=== PATIENT | female | born 1980 | race Caucasian/White ===

== ENCOUNTER 2019-12-24 | Emergency (ER) | payer SELFPAY | END 2019-12-24 05:20 | disposition home or self-care (01) ==

== ENCOUNTER → 2020-06-14 | Outpatient (CLI) | payer OTHER | LOC: LAB.NP 11:27 | PROVIDERS: ATTEND Emergency Medicine | DX: O13.9 Gestational [pregnancy-induced] hypertension without significant proteinuria, unspecified trimester (principal); Z3A.00 Weeks of gestation of pregnancy not specified ==

== ENCOUNTER 2020-08-29 12:05 | Emergency (ER) | payer OTHER ==
[2020-08-29] MEDS ORDERED: SODIUM CHLORIDE 0.9% (FLUSH) 10 ML SYG IV PRN (12:08)
--- NOTE | 2020-08-29 12:08 | ED.PDOC ---
History of Present Illness - General Time Seen by Provider: 08/29/20 12:06 Source: patient - History of Present Illness Initial Comments: Seen upon ED arrival at 12:10. 39 yo female who presents with cc of abdominal pain. Reports onset last night and worsening this morning, especially worsened in the past 1 hour, located to the left lower quadrant of the abdomen with radiation to the left lower flank region, describes as constant sharp, worsens with any attempted oral intake, she tried ibuprofen 400 mg 2 hours ago at home with little relief. Reports she had a bowel movement this morning which was hardened. Prior to that her last bowel movement was 3 days ago. Also reports normal urination this morning without dysuria/hematuria. Patient reports she had vaginal delivery [address] Raphael Middleton in [place]. The course was complicated by a blood clot and she states she had to be rushed to have surgery on her cervix. Reports no issues with this since then to her knowledge. Reports also nausea without emesis. Denies fevers, chills, chest pain, dyspnea, diarrhea, vaginal discharge. She reports scant vaginal bleeding which is slowing and nearly resolved. Denies any history of similar symptoms in the past. Denies any other prior abdominal surgeries. No reported history of kidney stones. She reports having issues with high blood pressure in and takes Procardia and Labetalol as needed if her BP is high. She did not take any BP medications this morning. Allergies/Adverse Reactions: Allergies Penicillins Allergy (Verified 08/29/20 12:21) Home Medications: Ambulatory Orders Acetaminophen W/ Codeine [Tylenol W/ CODEINE #3] 1 tab PO Q6H PRN 7 Days #10 tab 08/29/20 Ciprofloxacin HCl [Ciprofloxacin Hydrochlori] 500 mg PO BID 7 Days #14 tab 08/29/20 Labetalol HCl 08/29/20 Ondansetron Odt [Zofran ODT] 8 mg PO Q8H PRN 5 Days #10 tab 08/29/20 Procardia 08/29/20 Tamsulosin [Flomax] 0.4 mg PO QD 7 Days #7 cap 08/29/20 Review of Systems - Review of Systems Review of Systems: 08/29/20 12:21 as per HPI All other Systems: Reviewed and Negative Family Medical History - Family History Mother Family History: Unknown Living Status: Unknown Physical Exam - Physical Exam General Appearance: Alert, Anxious, No apparent distress Eye Exam: bilateral normal Ears, Nose, Throat: hearing grossly normal, normal ENT inspection, normal pharynx Neck: full range of motion, normal inspection Respiratory: chest non-tender, lungs clear, normal breath sounds, no respiratory distress, no accessory muscle use Cardiovascular/Chest: normal peripheral pulses, regular rate, rhythm, no edema, no gallop, no JVD, no murmur Peripheral Pulses: radial,right: 2+, radial,left: 2+ Gastrointestinal/Abdominal: soft, no organomegaly, abnormal bowel sounds - diminished, tenderness - moderate to LLQ & Left upper/lower flank regions w/o guarding or rebound Back Exam: normal inspection Extremity: normal range of motion, non-tender, normal inspection, no pedal edema, no calf tenderness, normal capillary refill Neurologic: 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 Consider CT imaging vs pelvic sono once labs back -place PIV, 1 L NS bolus, Toradol 30 mg IV, Zofran 4 mg IV 08/29/20 14:48 -Labs reveal UA with moderate blood, trace leuk esterase. Bloodwork largely unremarkable, hcg negative. BUN 13, Cr 0.7. -Patient had worsening of pain again so CT abdomen/pelvis obtained which revealed 5 mm kidney stone in the left proximal ureter with mild to moderate hydroureteronephrosis. She reports pain is markedly improved in the ED with morphine 4 mg IV x2. Discussed findings with patient including diagnosis of left ureteral stone. Given the size, I suspect she has a good chance of s pontaneous passage of the stone with medical treatment. We will discharge home with prescriptions of Cipro 500 twice daily for 7 days, Tylenol 3 as needed, Zofran as needed, Flomax. Follow-up closely with PCP advised. Return warnings discussed at length. Marcin Daivs MD Billing #[id number] 08/29/20 12:08 Sodium Chloride 0.9% (Flush) [Saline Flush Syringe] 10 ml IV PRN PRN 08/29/20 14:45 Strain Urine ONCE Laboratory Results - last 24 hr 08/29/20 08/29/20 08/29/20 12:20 12:20 12:20 WBC 6.6 RBC 4.26 Hgb 11.8 L Hct 35.9 L MCV 84.2 MCH 27.6 MCHC 32.8 L RDW 15.9 H Plt Count 577 H MPV 6.9 L Absolute Neuts (auto) 3.90 Absolute Lymphs (auto) 1.80 Absolute Monos (auto) 0.50 Absolute Eos (auto) 0.30 Absolute Basos (auto) 0.10 Neutrophils % 59.4 Lymphocytes % 27.9 Monocytes % 7.3 Eosinophils % 4.5 Basophils % 0.9 Sodium 138 Potassium 3.8 Chloride 99 L Carbon Dioxide 27 Anion Gap 15.8 BUN 13 Creatinine 0.72 BUN/Creatinine Ratio 18.1 Random Glucose 102 Serum Osmolality 276.0 Calcium 9.2 Total Bilirubin 0.8 Direct Bilirubin 0.1 Indirect Bilirubin 0.7 AST 38 ALT 46 Alkaline Phosphatase 114 Serum Total Protein 7.7 Albumin 4.2 Lipase 25 Serum HCG, Qual Negative Urine Color Urine Appearance Urine pH Ur Specific [place] Urine Protein Urine Glucose (UA) Urine Ketones Urine Blood Urine Nitrite Urine Bilirubin Urine Urobilinogen Ur Leukocyte Esterase Urine RBC Urine WBC Ur Epithelial Cells Urine Bacteria 08/29/20 13:24 WBC RBC Hgb Hct MCV MCH MCHC RDW Plt Count MPV Absolute Neuts (auto) Absolute Lymphs (auto) Absolute Monos (auto) Absolute Eos (auto) Absolute Basos (auto) Neutrophils % Lymphocytes % Monocytes % Eosinophils % Basophils % Sodium Potassium Chloride Carbon Dioxide Anion Gap BUN Creatinine BUN/Creatinine Ratio Random Glucose Serum Osmolality Calcium Total Bilirubin Direct Bilirubin Indirect Bilirubin AST ALT Alkaline Phosphatase Serum Total Protein Albumin Lipase Serum HCG, Qual Urine Color Yellow Urine Appearance Sl cloudy Urine pH 7.0 Ur Specific [place] 1.025 Urine Protein 100 H Urine Glucose (UA) Negative Urine Ketones Trace Urine Blood Moderate H Urine Nitrite Negative Urine Bilirubin Negative Urine Urobilinogen 0.2 Ur Leukocyte Esterase Trace H Urine RBC 5-10 H Urine WBC 0-1 Ur Epithelial Cells 10-20 Urine Bacteria 0 Departure - Departure Clinical Impression: Ureterolithiasis Time of Disposition: 14:38 Disposition: Discharge to Home or Self Care Condition: Fair Instructions: Kidney Stones (DC) Diet: resume usual diet Activity: increase activity as tolerated Referrals: RAPHAEL MIDDLETON [Primary Care Provider] - 1-2 Weeks Prescriptions: Ciprofloxacin HCl [Ciprofloxacin Hydrochlori] 500 mg PO BID 7 Days #14 tab Tamsulosin [Flomax] 0.4 mg PO QD 7 Days #7 cap Acetaminophen W/ Codeine [Tylenol W/ CODEINE #3] 1 tab PO Q6H PRN 7 Days #10 tab PRN Reason: Pain Ondansetron Odt [Zofran ODT] 8 mg PO Q8H PRN 5 Days #10 tab PRN Reason: Nausea Home Medications: Ambulatory Orders Acetaminophen W/ Codeine [Tylenol W/ CODEINE #3] 1 tab PO Q6H PRN 7 Days #10 tab 08/29/20 Ciprofloxacin HCl [Ciprofloxacin Hydrochlori] 500 mg PO BID 7 Days #14 tab 08/29/20 Labetalol HCl 08/29/20 Ondansetron Odt [Zofran ODT] 8 mg PO Q8H PRN 5 Days #10 tab 08/29/20 Procardia 08/29/20 Tamsulosin [Flomax] 0.4 mg PO QD 7 Days #7 cap 08/29/20 Additional Instructions: Remain well-hydrated and gradually advance your diet and activity level as tolerated. Continue take [id number] medications as needed such as ibuprofen 600 mg every 4-6 hours as needed and Tylenol 650 mg every 6 hours as needed. You may take the Tylenol 3 as directed for breakthrough pain but do not drive or operate heavy machinery while taking. You may also take the Zofran as directed for nausea. Continue Flomax once daily as directed until passage of kidney stone. Take the antibiotics as directed and finish the full course even if well. Return to the ED if you have new or concerning symptoms or if your pain becomes uncontrolled with the above therapy. Otherwise follow-up with your primary care doctor is recommended in the next 1 to 2 weeks for repeat evaluation or sooner as needed. You may urinate through the strainer and collect the stone to bring to your next doctor visit. They are able to provide to the lab to analyze for what type of stone it is.
[2020-08-29] MEDS ORDERED: KETOROLAC TROMETHAMINE INJ 30 MG/ML VIAL IV ONE (12:16)
[2020-08-29] MEDS ORDERED: ONDANSETRON INJ 4 MG/2 ML VIAL IV ONE (12:16)
[2020-08-29] MEDS ORDERED: SODIUM CHLORIDE 0.9% 500ML 500 ML IVS ONE (13:19)
--- NOTE | 2020-08-29 13:22 | RAD ---
EXAM DESCRIPTION: Abdomen 1 View CLINICAL HISTORY: 39 years Female, acute L-sided abdominal pain COMPARISON: None. Findings: 1 view(s)/radiograph(s) Location: abdomen Nonobstructive bowel gas pattern. No suspicious calcification. No acute osseous abnormalities. Soft tissues are unremarkable. Moderate stool volume. IMPRESSION: Nonobstructive bowel gas pattern. 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
[2020-08-29] MEDS ORDERED: MORPHINE SULFATE INJ 10 MG/ML VIAL IV ONE ×2 (14:00→14:38)
[2020-08-29] MEDS ORDERED: TAMSULOSIN 0.4 MG CAP PO ONE (14:31)
[2020-08-29] MEDS ORDERED: CIPROFLOXACIN 500 MG TAB PO ONE (14:31)
--- NOTE | 2020-08-29 14:40 | CT ---
EXAM DESCRIPTION: Abdoment/Pelvis w/o Contrast CLINICAL HISTORY: 39 years Female, LLQ abdominal pain TECHNIQUE: This exam was performed according to our departmental dose-optimization program, which includes automated exposure control, adjustment of the mA and/or kV according to patient size and/or use of iterative reconstruction technique. COMPARISON: 09/25/2007 FINDINGS: Bibasilar volume loss. No focal consolidation or suspicious pulmonary nodule. Evaluation limited by lack of intravenous contrast. The contours of the liver, gallbladder, spleen, pancreas and adrenal glands are unremarkable. Proximal left ureteral stone measuring 5 mm with mild proximal hydroureteronephrosis. Normal renal contours. No right hydronephrosis or obstructing urolithiasis. The bladder is decompressed. No suspicious adnexal lesion. No evidence of bowel obstruction or focal inflammatory change. No findings to suggest appendicitis. No adenopathy. No focal fluid collection. No free air. Normal caliber abdominal aorta. No acute or suspicious osseous abnormality. Scattered degenerative changes present. IMPRESSION: Proximal left ureteral stone measuring 5 mm with mild proximal hydroureteronephrosis. 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
[2020-08-29 15:12] VITALS: BP 140/100; O2SAT 96
[2020-08-29 15:22] VITALS: TEMP 97.5
== END 2020-08-29 15:18 | disposition home or self-care (01) ==
LOC: ER 12:05
DX: I13.2 Hypertensive heart and chronic kidney disease with heart failure and with stage 5 chronic kidney disease, or end stage renal disease (principal); Z88.0 Allergy status to penicillin; Z86.718 Personal history of other venous thrombosis and embolism; Z98.890 Other specified postprocedural states
CPT/HCPCS: 36415; 74018; 74176; 80048; 80076; 81001; 83690; 84703; 85025; J1885; J2270; J2405; J7040